=== PATIENT | female | born 1990 | race Caucasian/White ===

== ENCOUNTER → 2019-02-07 | Outpatient (CLI) | payer OTHER | LOC: LAB 15:57 | PROVIDERS: ATTEND Family Medicine | DX: N92.6 Irregular menstruation, unspecified (principal) | CPT/HCPCS: 36415; 83036; 84443; 85027 ==

== ENCOUNTER → 2019-02-17 | Outpatient (CLI) | payer OTHER | LOC: LAB 16:02 | PROVIDERS: ATTEND Family Medicine | DX: R94.6 Abnormal results of thyroid function studies (principal) | CPT/HCPCS: 36415; 84439; 84443; 84480 ==